=== PATIENT | male | born 1970 | race Hispanic/Latino ===

== ENCOUNTER 2021-02-05 08:24 | Emergency (ER) | payer BC, SELFPAY ==
[2021-02-05 18:41] LABS: SARS-CoV-2 PCR by NAA Not Detected (NotDetected)
== END 2021-02-05 09:20 | disposition home or self-care (01) ==
LOC: NAV ERS 08:24
DX: J02.9 Acute pharyngitis, unspecified (principal); M79.10 Myalgia, unspecified site; Z20.822 Contact with and (suspected) exposure to COVID-19
CPT/HCPCS: 99284; U0003; U0005